=== PATIENT | male | born 1975 | race Caucasian/White ===

== ENCOUNTER 2025-05-05 18:36 | Emergency (ER) | payer OTHER ==
[2025-05-05 19:30] LABS: #Basophils 0.13 10x3/uL (0.0-0.2); #Eosinophils 0.18 10x3/uL (0.0-0.7); #Monocytes 0.41 10x3/uL (0.11-0.59); #Neutrophils 2.82 10x3/uL (1.40-6.50); %Basophils 2.1 % (0.0-1.0); %Eosinophils 2.9 % (0.0-10.0); %Lymphocytes 43.1 % (21.0-51.0); %Monocytes 6.5 % (0.0-10.0); %Neutrophils 45.1 % (42.0-75.0); Hematocrit 41.6 % (42.0-52.0); Hemoglobin 14.5 g/dL (14.0-18.0); Mean Corpuscular Hemoglobin 33.6 pg (27.0-31.0); Mean Corpuscular Volume 96.3 fL (78.0-98.0); Platelet Count 313 10x3/uL (130-400); Red Blood Cell (RBC) Count 4.32 mill/uL (4.70-6.10); White Blood Cell (WBC) Count 6.26 10x3/uL (4.8-10.8)
[2025-05-05 19:44] LABS: PTT 35.1 sec (22.9-36.1)
[2025-05-05 19:53] LABS: ALT (SGPT) 22 U/L (Less than 45); AST (SGOT) 66 U/L (11-34); Acetaminophen Less than 10 mcg/mL (Less than 10); Albumin 4.0 g/dL (3.1-4.5); Alkaline Phosphatase 153 U/L (40-110); Anion Gap 20 mmol/L (10-20); BUN (Urea Nitrogen) 6 mg/dL (8.9-20.6); Bilirubin, Total 0.3 mg/dL (0.3-1.2); CK (CPK) 227 U/L (30-200); Calc. Creatinine Clearance 0 mL/min (70-130); Calcium 9.2 mg/dL (7.8-10.44); Carbon Dioxide 21 mmol/L (22-29); Chloride 102 mmol/L (98-107); Globulin 4.0 g/dL (2.4-3.5); Glucose 119 mg/dL (70-105); Potassium 3.6 mmol/L (3.5-5.1); Salicylate Less than 8.0 mg/dL (Less than 8.0); Sodium 139 mmol/L (136-145)
[2025-05-05 19:54] LABS: INR-International Normal Ratio 1.2; Prothrombin Time 15.0 sec (12.0-14.7)
== END 2025-05-05 22:05 | disposition home or self-care (01) ==
LOC: ERS 18:36
DX: F10.129 Alcohol abuse with intoxication, unspecified (principal); S00.03XA Contusion of scalp, initial encounter; W01.10XA Fall on same level from slipping, tripping and stumbling with subsequent striking against unspecified object, initial encounter
CPT/HCPCS: 36416; 70450; 71045; 72125; 80053; 80307; 82550; 85025; 85610; 85730; 93005

== ENCOUNTER 2025-05-06 20:12 | Emergency (ER) | payer OTHER | END 2025-05-06 23:00 | disposition home or self-care (01) | LOC: ERS 20:12 | DX: F10.129 Alcohol abuse with intoxication, unspecified (principal); F32.A Depression, unspecified; F43.10 Post-traumatic stress disorder, unspecified; Z55.6 Problems related to health literacy | CPT/HCPCS: 70450 ==